=== PATIENT | female | born 1990 | race Caucasian/White ===

== ENCOUNTER → 2019-11-27 11:10 | Observation (INO) ==
[2019-11-27 08:09] LABS: Basophils % 0.1 %; Eosinophils # 0.1 K/mcL (0.0-0.6); Eosinophils % 0.7 %; Hemoglobin 11.6 g/dL (11.5-15.4); Immature Granulocytes % 0.6 % (0-4); Lymphocytes # 1.2 K/mcL (0.6-4.6); Lymphocytes % 14.3 %; Mean Corpuscular HGB Conc 33.1 g/dL (31.6-35.5); Mean Corpuscular Hemoglobin 31.7 pg (28.0-33.3); Mean Corpuscular Volume 95.6 fL (83.0-100.0); Mean Platelet Volume 9.4 fL (9.4-12.4); Monocytes # 0.5 K/mcL (0.0-1.3); Monocytes % 5.7 %; Neutrophils # 6.6 K/mcL (1.6-8.9); Platelet Count 219 K/mcL (140-400); Red Blood Count 3.66 M/mcL (3.82-4.97); Red Cell Distribution Width 12.8 % (11.5-14.5); Segmented Neutrophils % 78.6 %; White Blood Count 8.4 K/mcL (4.3-11.1)
[2019-11-27 08:38] LABS: Activated Partial Thrombo Time 26.1 Seconds (26.0-36.0); INR 0.9; Prothrombin Time 10.3 Seconds (9.4-12.1)
[~2019-11-27 11:10] MED LIST: Betamethasone Acet/SodPhos 30 MG/5 ML VIAL IM SCH; Magnesium Sulf 20 gm/SW 500mL 20 GM/500 ML IV.SOLN IVC SCH; Rho Immune Globulin 1,500 UNIT SYRINGE IM ONE; Ringers Solution, Lactated 1,000 ML ONE
== END | disposition short-term general hospital (02) ==
LOC: 1NENULAB
PROVIDERS: ADMIT Obstetrics & Gynecology; ATTEND Obstetrics & Gynecology